=== PATIENT | female | born 1975 | race Caucasian/White ===

== ENCOUNTER → 2016-04-14 | Outpatient (CLI) | payer OTHER ==
[~2016-04-14] MED LIST: DOXY100C76 PO; LEVO1TAB33 PO
== END | disposition home or self-care (01) ==
LOC: C.PAPS 13:49
PROVIDERS: ATTEND Obstetrics & Gynecology
DX: Z01.419 Encounter for gynecological examination (general) (routine) without abnormal findings (principal)

== ENCOUNTER → 2017-01-31 | Outpatient (CLI) | payer OTHER ==
--- NOTE | 2017-01-31 15:19 | MAMMOGRAPHY REPORT ---
BILATERAL FIRST EVER DIGITAL SCREENING MAMMOGRAM TOMOSYNTHESIS WITH CAD: 01/31/2017 CLINICAL HISTORY: Routine screening. Baseline exam. TECHNIQUE: Breast tomosynthesis in addition to standard 2D mammography was performed. Current study was also evaluated with a Computer Aided Detection (CAD) system. COMPARISON: No prior exams were available for comparison. BREAST COMPOSITION: The tissue of both breasts is heterogeneously dense, which may obscure small mas ses. FINDINGS: There is an oval partially circumscribed and partially obscured 12 millimeter mass within the right upper outer quadrant, for which ultrasound and possible additional spot compression views a re recommended for further evaluation. This may represent a cyst. The remainder of both breasts demonstrate no suspicious masses, calcifications, or areas of mobile application architect ural distortion. A few scattered bilateral benign-appearing calcifications are noted. The technolog ist reports that bilateral yellowish nipple discharge was elicited during compression. IMPRESSION: ACR BI-RADS CATEGORY 0: INCOMPLETE EVALUATION: NEED ADDITIONAL IMAGING EVALUATION 1. Right breast mass, for which additional imaging evaluation is recommended. 2. Bilateral yellow nipple discharge was noted during compression. Bilateral subareolar ultrasound can be performed at the time of the diagnostic workup to exclude a possible intraductal mass. Also r ecommend clinical follow-up. The patient will be called to schedule an appointment. Approximately 10% of breast cancers are not detected with mammography. A negative mammographic report should not delay biopsy if a clinically suggestive mass is present. Chloe Navas M.D. /:01/31/2017 12:45:46 Coiler Operator: Hawa LO)(Naty), [facility] letter sent: Addl Imaging 0 BI-RADS Code: ACR BI-RADS Category 0: Incomplete Evaluation: Need Additional Imaging Evaluation
== END | disposition home or self-care (01) ==
LOC: C.MAMM 11:40
PROVIDERS: ATTEND Family Medicine
DX: Z12.31 Encounter for screening mammogram for malignant neoplasm of breast (principal); N63.10 Unspecified lump in the right breast, unspecified quadrant; N64.52 Nipple discharge

== ENCOUNTER → 2017-02-06 | Outpatient (CLI) | payer OTHER ==
--- NOTE | 2017-02-06 14:33 | MAMMOGRAPHY REPORT ---
ULTRASOUND OF BOTH BREASTS: 02/06/2017 CLINICAL HISTORY: Callback from screening mammogram for right breast mass. The patient also had bila teral yellow nipple discharge which was elicited during mammogram compression. She denies ever havin g any episodes of nipple discharge in the past. She denies any bloody or spontaneous nipple discharg e. COMPARISON: Comparison is made to exam dated: 01/31/2017 mammogram - . TECHNIQUE: Real-time targeted ultrasound of both breasts was performed. FINDINGS: Real-time, high resolution targeted ultrasound was performed of the right upper outer quad rant in the region of the mammographic mass. In the right breast at 11:00 periareolar region, there is a round circumscribed anechoic mass which measures 12 x 10 x 13 mm. This corresponds with the dwayne mographic mass and is consistent with a benign simple cyst. Targeted ultrasound was also performed o f bilateral subareolar breasts to evaluate for a possible intraductal mass. No intraductal mass or o ther suspicious abnormality is evident. Multiple small round/oval benign simple cysts were noted in bilateral subareolar breasts. IMPRESSION: ACR BI-RADS CATEGORY 2: BENIGN 1. Benign 13 mm simple cyst in the right breast at 11:00, which corresponds with the mammographic ma ss. Other small cysts were noted bilaterally during the ultrasound exam. 2. No intraductal mass or other abnormality seen within bilateral subareolar breasts. Recommend cli nical follow-up for bilateral nipple discharge which was only noted during compression and is likely physiologic. There is no sonographic evidence of malignancy. A 1 year screening mammogram is recommended. The trena barron was verbally notified of the results. Chloe Navas M.D. /:02/06/2017 11:43:35 Occupational Health Technician: Aida LO)(Naty), letter sent: Normal 1/2 BI-RADS Code: ACR BI-RADS Category 2: Benign
== END | disposition home or self-care (01) ==
LOC: C.MAMM 11:14
PROVIDERS: ATTEND Family Medicine
DX: N60.01 Solitary cyst of right breast (principal); N64.52 Nipple discharge